=== PATIENT | female | born 1975 | race Caucasian/White ===

== ENCOUNTER 2021-08-25 14:44 | Inpatient (IN) | payer BC ==
[~2021-08-25] VITALS: Ht 175.3 cm; Wt 72.7 kg
[2021-08-25] MEDS ORDERED: normal saline 1000ml 1,000 ML IV ONE (15:25)
[2021-08-25 15:44] LABS: BASOPHILS % (AUTO) 0.3 % (0-1); EOSINOPHILS % (AUTO) 0 % (0-6); HEMATOCRIT 43.5 % (35.0-45.0); HEMOGLOBIN 14.8 g/dl (12.0-16.0); LYMPHOCYTES # (AUTO) 1.1 X10'3 (1.1-4.8); LYMPHOCYTES % (AUTO) 10.1 % (21-51); MEAN CORPUSCULAR HEMOGLOBIN 30.4 PG (27.0-31.0); MEAN CORPUSCULAR VOLUME 89.5 FL (78-98); MEAN PLATELET VOLUME 7.1 FL (7.4-10.4); MONOCYTES # (AUTO) 0.7 X10'3 (0-0.9); MONOCYTES % (AUTO) 6.6 % (2-12); NEUTROPHILS # (AUTO) 9.2 X10'3 (1.8-7.7); PLATELET COUNT 358 X10'3 (140-440); RED BLOOD COUNT 4.86 X10'6 (4.20-5.60); RED CELL DISTRIBUTION WIDTH 14.1 % (11.5-14.5); WHITE BLOOD COUNT 11.1 X10'3 (4.5-11.0)
[2021-08-25 15:59] LABS: ALANINE AMINOTRANSFERASE 17 U/L (12-78); ALBUMIN 3.1 G/DL (3.4-5.0); ALBUMIN/GLOBULIN RATIO 0.7 (1.1-1.5); ALKALINE PHOSPHATASE 62 IU/L (46-116); ANION GAP 30 (8-16); ASPARTATE AMINO TRANSFERASE 15 U/L (10-37); BILIRUBIN,DIRECT 0.1 MG/DL (0-0.3); BILIRUBIN,TOTAL 0.6 MG/DL (0.1-1.0); BLOOD UREA NITROGEN 40 MG/DL (7-18); BUN/CREATININE RATIO 30.5 (6.6-38.0); CHLORIDE 106 MMOL/L (99-107); CREATININE 1.31 MG/DL (0.40-0.90); GLUCOSE 322 MG/DL (70-104); LIPASE 379 U/L (73-393); POTASSIUM 3.9 MMOL/L (3.5-5.1); SODIUM 143 MMOL/L (135-145); TOTAL PROTEIN 7.3 G/DL (6.4-8.2); eGFR 43 ML/MIN
[2021-08-25 16:02] LABS: TOTAL CARBON DIOXIDE 7.5 MMOL/L (24-32)
[2021-08-25] MEDS ORDERED: Insulin Reg/NS 100units/100mL 100 ML IV SCH ×2 (16:15→18:15)
[2021-08-25] MEDS ORDERED: dextrose 50%-water 50ml dispensing syringe IV PRN (16:15)
[2021-08-25] MEDS: Insulin Reg/NS 100units/100mL 100 ML IV SCH (16:48)
[2021-08-25] MEDS ORDERED: levoFLOXACIN-Levaquin 750MG/D5 150 ML IV STA (16:56)
[2021-08-25] MEDS: potassium Cl 10 mEq/100mL bag IV SCH ×2 (17:45→22:27)
--- NOTE | 2021-08-25 17:58 | NUR ---
pt straight cath with 1.2 liters out clear urine
[2021-08-25 18:06] LABS: CLARITY,URINE CLEAR (Clear); COLOR,URINE YELLOW (Yellow); GLUCOSE, URINE 500 mg/dl (Neg); KETONES,URINE >=80 mg/dl (Neg); PROTEIN,URINE TRACE mg/dl (Neg); UA COLLECTION TYPE OTHER
[2021-08-25 18:07] LABS: LEUKOCYTE ESTERASE ,URINE NEGATIVE (Neg); NITRITES, URINE NEGATIVE (Neg); OCCULT BLOOD,URINE SMALL (Neg); UROBILINOGEN,URINE 0.2 E.U/dL (0.2-1.0)
[2021-08-25 18:15] LABS: BACTERIA,URINE NONE SEEN /HPF (Neg); MUCUS STRANDS FEW /LPF (Neg); RBC,URINE NONE SEEN /HPF (0-2); SQUAMOUS EPITHELIAL CELL,UR NONE SEEN /LPF (FEW); WBC,URINE NONE SEEN /HPF (0-4)
[2021-08-25] MEDS ORDERED: acetaminophen 325mg tablet PO PRN ×2 (18:15)
[2021-08-25] MEDS ORDERED: insulin regular, human U-100 3ml vial - multi-dose IV PRN (18:15)
[2021-08-25] MEDS ORDERED: magnesium hydroxide 30ml (MOM) UD suspension PO PRN (18:15)
[2021-08-25] MEDS ORDERED: Neutra Phos packet PO PRN (18:15)
[2021-08-25] MEDS ORDERED: HYDROcodone/acetaminophen 10/325mg tab PO PRN (18:15)
[2021-08-25] MEDS ORDERED: potassium Cl 20 mEq SR tablet PO PRN ×2 (18:15)
[2021-08-25] MEDS ORDERED: sodium bicarbonate (8.4%) inj. 100 MEQ in dextrose 5% water 500ml 500 ML IV PRN (18:15)
[2021-08-25] MEDS ORDERED: morphine 2 MG/ML inj. syringe IV PRN ×2 (18:15)
[2021-08-25] MEDS ORDERED: HYDROcodone/acetaminophen 5mg/325mg tablet PO PRN (18:15)
[2021-08-25] MEDS ORDERED: sodium phosphate inj. 15 MMOL in dextrose 5%-water 250 ML IV PRN (18:15)
[2021-08-25] MEDS ORDERED: sodium phosphate inj. 30 MMOL in dextrose 5%-water 250 ML IV PRN (18:15)
[2021-08-25] MEDS ORDERED: ondansetron/PF 4mg/2ml inj IV PRN (18:15)
[2021-08-25] MEDS ORDERED: potassium Cl 40MEQ/1/2NS 520ml 520 ML IV PRN (18:15)
[2021-08-25] MEDS ORDERED: mag hydrox/Alum hydrox/simeth 30ml oral suspension PO PRN (18:15)
[2021-08-25] MEDS ORDERED: sodium bicarbonate (8.4%) inj. 50 MEQ in dextrose 5% water 500ml 250 ML IV PRN (18:15)
[2021-08-25] MEDS ORDERED: potassium CL 20mEq in D5-1/2NS 1,000 ML IV PRN (18:15)
--- NOTE | 2021-08-25 18:34 | NUR ---
ASSUMED CARE OF PATIENT. PATIENT IS LYING IN BED. CONTINUES TO BE NONVERBAL. NO CHANGE IN LOC SINCE ARRIVAL PER PREVIOUS NURSE. SPOUSE IS SITTING NEXT TO PATIENT.
[2021-08-25] MEDS: normal saline 1000ml 1,000 ML IV SCH ×4 (18:45→22:15)
[2021-08-25 19:18] LABS: ALBUMIN 3.2 G/DL (3.4-5.0); ANION GAP 30 (8-16); BLOOD UREA NITROGEN 35 MG/DL (7-18); BUN/CREATININE RATIO 25.7 (6.6-38.0); CALCIUM 8.5 MG/DL (8.5-10.1); CHLORIDE 109 MMOL/L (99-107); CREATININE 1.36 MG/DL (0.40-0.90); GLUCOSE 259 MG/DL (70-104); PHOSPHORUS 2.7 MG/DL (2.3-4.5); POTASSIUM 3.7 MMOL/L (3.5-5.1); SODIUM 148 MMOL/L (135-145); eGFR 41 ML/MIN
[2021-08-25 19:35] LABS: TOTAL CARBON DIOXIDE 9.5 MMOL/L (24-32)
[2021-08-25] MEDS: docusate sod 100mg capsule PO SCH (20:00)
[2021-08-25] MEDS: K and/or MAG REPLACEMENT MC SCH (20:00)
[2021-08-25] MEDS ORDERED: EMPA25TA PO (20:32)
[2021-08-25] MEDS ORDERED: METF-438 PO (20:32)
--- NOTE | 2021-08-25 20:59 | NUR ---
staley catheter is placed
--- NOTE | 2021-08-25 22:35 | NUR ---
MEDS GIVEN LATE PT YANKED OUT HER LEFT IV ON ACCIDENT. NEW LINE PLACED ON RIGHT DISTAL FOREARM, #20G, RUNNING WELL. FLUIDS SWITCHED FROM 250 NS TO D5 1/2NS 20mEqK PER DKA PROTOCOL. NEW CMP HAS BEEN DRAWN. PT'S MENTAL STATUS REMAINS ALTERED. SHE MOVES WITH PURPOSE, MOANS, OPENS EYES AND TRACKS MY MOVEMENT; HOWEVER, SHE REMAINS NONVERBAL. CARDIAC LEADS ARE ON. GOOD URINE OUTPUT OBSERVED ON HOGUE. PT IS CLOSELY BEING MONITORED.
[2021-08-25 23:13] LABS: ALANINE AMINOTRANSFERASE 20 U/L (12-78); ALBUMIN 2.9 G/DL (3.4-5.0); ALBUMIN/GLOBULIN RATIO 0.8 (1.1-1.5); ALKALINE PHOSPHATASE 76 IU/L (46-116); ANION GAP 25 (8-16); ASPARTATE AMINO TRANSFERASE 15 U/L (10-37); BILIRUBIN,TOTAL 0.5 MG/DL (0.1-1.0); BLOOD UREA NITROGEN 32 MG/DL (7-18); BUN/CREATININE RATIO 27.8 (6.6-38.0); CALCIUM 7.8 MG/DL (8.5-10.1); CHLORIDE 115 MMOL/L (99-107); CREATININE 1.15 MG/DL (0.40-0.90); GLUCOSE 172 MG/DL (70-104); PHOSPHORUS 1.5 MG/DL (2.3-4.5); POTASSIUM 3.5 MMOL/L (3.5-5.1); SODIUM 151 MMOL/L (135-145); TOTAL PROTEIN 6.7 G/DL (6.4-8.2); eGFR 50 ML/MIN
[2021-08-25 23:20] LABS: TOTAL CARBON DIOXIDE 11.4 MMOL/L (24-32)
--- NOTE | 2021-08-25 23:37 | NUR ---
SPOKE TO DR BIANCHI CONCERNING PT'S CRITICAL CO2. GAVE ORDERS FOR A STAT ABG AND SWITCHING FLUIDS TO D10 D/T PT'S BG.
--- NOTE | 2021-08-25 23:53 | NUR ---
SPOKE WITH PHARMACY ON THE PHONE. THEY ARE GETTING MY D10 AND K BAGS READY.
--- NOTE | 2021-08-25 23:54 | NUR ---
RT HAS BEEN PAGED FOR ABG
[2021-08-26 00:14] LABS: ABG BASE EXCESS -14.1 mmol/L (-2.0-2.0); ABG HCO3 11.3 mmol/L (22.0-26.0); ABG PCO2 (T) 26.1 mmHg (32.0-45.0); ABG PO2 (T) 92.2 mmHg (75.0-100.0); ALLEN'S TEST POSITIVE; FCOHb 0.2 % (0.0-3.9); FMetHb 0.4 % (0.0-1.5); FO2Hb 96.4 % (94-97); PATIENT TEMPERATURE 36.7; TOTAL HEMOGLOBIN 14.4 G/dl (12.0-16.0)
--- NOTE | 2021-08-26 00:29 | NUR ---
RECIEVED MY D10 BAG FROM PHARMACY. FLUIDS INFUSING NOW. WILL CONTINUE TO MONITOR CAREFULLY. POTASSIUM BAG WAS REJECTED LAST LAB RESULT WAS 3.5. WILL CONTINUE TO MONITOR POTASSIUM LEVELS. PT CONTINUES TO BE ALTERED. ABG HAS ALREADY BEEN TAKEN BY RT.
[2021-08-26] MEDS: DEXTROSE 10 % AND 0.45 % NACL 1,000 ML IV SCH ×3 (00:30→19:24)
[2021-08-26 01:28] LABS: ALBUMIN 2.8 G/DL (3.4-5.0); ANION GAP 23 (8-16); BLOOD UREA NITROGEN 30 MG/DL (7-18); BUN/CREATININE RATIO 25.9 (6.6-38.0); CALCIUM 7.9 MG/DL (8.5-10.1); CHLORIDE 118 MMOL/L (99-107); CREATININE 1.16 MG/DL (0.40-0.90); GLUCOSE 148 MG/DL (70-104); POTASSIUM 3.6 MMOL/L (3.5-5.1); eGFR 50 ML/MIN
[2021-08-26 01:47] LABS: SODIUM 155 MMOL/L (135-145)
[2021-08-26 01:48] LABS: PHOSPHORUS 1.2 MG/DL (2.3-4.5); TOTAL CARBON DIOXIDE 13.8 MMOL/L (24-32)
--- NOTE | 2021-08-26 01:55 | NUR ---
SPOKE TO DR BIANCHI CONCERNING PT'S NEW CRITICAL VALUES OVER THE PHONE. GIVEN A TELEPHONE ORDER TO INCREASE INSULILN FROM 3 UNITS/HR TO 6 UNITS/HR AND TO GIVE D10 1/2 NS running at 100 ml/hr. THERE IS NO CHANGE IN LOC IN PT AT THIS POINT.
--- NOTE | 2021-08-26 02:06 | NUR ---
SPOKE TO DR BIANCHI WHETHER WE WANT TO GIVE PT MORE FLUIDS D/T DKA. HE BELIEVES PT DOES NOT REQUIRE MORE FLUIDS AT THIS POINT.
[2021-08-26] MEDS: normal saline 1000ml 1,000 ML IV SCH ×5 (02:15→18:15)
--- NOTE | 2021-08-26 04:34 | NUR ---
SPOKE TO DR BIANCHI CONCERNING PT' NEW BG. ORDERS TO INCREASE RATE OF D10 1/2 NS FROM 110 ML/HR TO 130 ML/HR AND TO DECREASE INSULIN FROM 6 UNITS/HR TO 5 UNITS/HR. CBC AND CMP HAVE ALSO BEEN DRAWN.
--- NOTE | 2021-08-26 04:35 | NUR ---
NO CHANGE IN LOC AT THIS TIME
[2021-08-26 04:48] LABS: BASOPHILS % (AUTO) 0.3 % (0-1); EOSINOPHILS % (AUTO) 0 % (0-6); HEMATOCRIT 40.9 % (35.0-45.0); HEMOGLOBIN 14.2 g/dl (12.0-16.0); LYMPHOCYTES # (AUTO) 1.2 X10'3 (1.1-4.8); LYMPHOCYTES % (AUTO) 11.6 % (21-51); MEAN CORPUSCULAR HEMOGLOBIN 30.2 PG (27.0-31.0); MEAN CORPUSCULAR HGB CONC 34.6 g/dL (33.0-36.5); MEAN CORPUSCULAR VOLUME 87.2 FL (78-98); MEAN PLATELET VOLUME 7.1 FL (7.4-10.4); MONOCYTES # (AUTO) 0.8 X10'3 (0-0.9); MONOCYTES % (AUTO) 7.8 % (2-12); NEUTROPHILS # (AUTO) 8.4 X10'3 (1.8-7.7); NEUTROPHILS % (AUTO) 80.3 % (42-75); PLATELET COUNT 300 X10'3 (140-440); RED BLOOD COUNT 4.69 X10'6 (4.20-5.60); RED CELL DISTRIBUTION WIDTH 13.3 % (11.5-14.5); WHITE BLOOD COUNT 10.5 X10'3 (4.5-11.0)
--- NOTE | 2021-08-26 05:35 | NUR ---
SPOKE TO DR BIANCHI CONCERNING PT'S BG OF 79. INSTRUCTED TO GIVE D50 AND DECREASE INSULIN DRIP FROM 5 UNITS TO 4 UNITS/HR.
[2021-08-26 05:40] LABS: ALANINE AMINOTRANSFERASE 19 U/L (12-78); ALBUMIN 2.8 G/DL (3.4-5.0); ALBUMIN/GLOBULIN RATIO 0.8 (1.1-1.5); ALKALINE PHOSPHATASE 56 IU/L (46-116); ANION GAP 15 (8-16); ASPARTATE AMINO TRANSFERASE 17 U/L (10-37); BILIRUBIN,TOTAL 0.4 MG/DL (0.1-1.0); BLOOD UREA NITROGEN 27 MG/DL (7-18); CALCIUM 8.1 MG/DL (8.5-10.1); CHLORIDE 121 MMOL/L (99-107); CREATININE 1.23 MG/DL (0.40-0.90); GLUCOSE 118 MG/DL (70-104); SODIUM 154 MMOL/L (135-145); TOTAL CARBON DIOXIDE 18.1 MMOL/L (24-32); TOTAL PROTEIN 6.3 G/DL (6.4-8.2); eGFR 47 ML/MIN
[2021-08-26] MEDS: dextrose 50%-water 50ml dispensing syringe IV PRN ×2 (05:42→19:25)
[2021-08-26 05:55] LABS: POTASSIUM 2.9 MMOL/L (3.5-5.1)
--- NOTE | 2021-08-26 06:01 | NUR ---
NOTIFIED DR BIANCHI CONCERNING PT'S CRITICAL LAB FOR POTASSIUM. WILL GIVE 40 K IV PER PROTOCOL. CALLED PHARMACY; THEY ARE GETTING MY BAGS READY.
[2021-08-26] MEDS: potassium Cl 40MEQ/1/2NS 520ml 520 ML IV PRN ×2 (07:20→14:10)
[2021-08-26] MEDS: K and/or MAG REPLACEMENT MC SCH ×2 (07:31→20:00)
[2021-08-26] MEDS: docusate sod 100mg capsule PO SCH ×2 (07:31→20:00)
[2021-08-26 11:25] LABS: URINE AMPHETAMINE SCREEN NEGATIVE (Neg); URINE BARBITUATE SCREEN NEGATIVE (Neg); URINE BENZODIAZEPINES SCREEN NEGATIVE (Neg); URINE CANNABINOID SCREEN NEGATIVE (Neg); URINE COCAINE SCREEN NEGATIVE (Neg); URINE METHADONE SCREEN NEGATIVE (Neg); URINE OPIATE SCREEN NEGATIVE (Neg); URINE PHENCYCLIDINE SCREEN NEGATIVE (Neg)
--- NOTE | 2021-08-26 13:25 | NUR ---
dr galvez at bedside.verbal order for ct abd and pelvis,procalcitonin ,hbA1C,lactic acid order.
[2021-08-26 13:47] LABS: HEMOGLOBIN A1C 9.2 % (4.5-6.2)
--- NOTE | 2021-08-26 14:13 | NUR ---
went to ct scan with the pt just came back.
--- NOTE | 2021-08-26 19:42 | NUR ---
pt is now able to complete a few full sentences. she has asked for a glass of water and a blanket. she has also been able to tell me her first name.
[2021-08-26 23:03] LABS: ANION GAP 10 (8-16); CHLORIDE 120 MMOL/L (99-107); GLUCOSE 189 MG/DL (70-104); SODIUM 154 MMOL/L (135-145); TOTAL CARBON DIOXIDE 24.5 MMOL/L (24-32)
[2021-08-26 23:04] LABS: ALANINE AMINOTRANSFERASE 27 U/L (12-78); ALBUMIN 2.4 G/DL (3.4-5.0); ALBUMIN/GLOBULIN RATIO 0.8 (1.1-1.5); ALKALINE PHOSPHATASE 46 IU/L (46-116); ASPARTATE AMINO TRANSFERASE 31 U/L (10-37); BILIRUBIN,TOTAL 0.6 MG/DL (0.1-1.0); BLOOD UREA NITROGEN 13 MG/DL (7-18); BUN/CREATININE RATIO 17.8 (6.6-38.0); CALCIUM 7.2 MG/DL (8.5-10.1); CREATININE 0.73 MG/DL (0.40-0.90); TOTAL PROTEIN 5.5 G/DL (6.4-8.2); eGFR 85 ML/MIN
[2021-08-26 23:10] LABS: POTASSIUM 2.4 MMOL/L (3.5-5.1)
[2021-08-27] MEDS: potassium Cl 40MEQ/1/2NS 520ml 520 ML IV PRN (01:17)
[2021-08-27 01:35] LABS: ABG BASE EXCESS 4.1 mmol/L (-2.0-2.0); ABG HCO3 26.1 mmol/L (22.0-26.0); ABG OXYGEN SATURATION 95.9 % (94-97); ABG PCO2 (T) 31.3 mmHg (32.0-45.0); ABG PO2 (T) 69.2 mmHg (75.0-100.0); ALLEN'S TEST POSITIVE; FMetHb 0.3 % (0.0-1.5); FO2Hb 94.7 % (94-97); RESPIRATORY RATE 18 b/min; TOTAL HEMOGLOBIN 13.6 G/dl (12.0-16.0)
[2021-08-27] MEDS: Insulin Reg/NS 100units/100mL 100 ML IV SCH (01:35)
[2021-08-27] MEDS: normal saline 1000ml 1,000 ML IV SCH ×7 (02:15→23:10)
[2021-08-27 02:18] LABS: BASOPHILS # (AUTO) 0.1 X10'3 (0-0.2); BASOPHILS % (AUTO) 0.6 % (0-1); EOSINOPHILS % (AUTO) 0.1 % (0-6); HEMATOCRIT 38.5 % (35.0-45.0); HEMOGLOBIN 13.5 g/dl (12.0-16.0); LYMPHOCYTES # (AUTO) 1.5 X10'3 (1.1-4.8); LYMPHOCYTES % (AUTO) 16.7 % (21-51); MEAN CORPUSCULAR HEMOGLOBIN 30.2 PG (27.0-31.0); MEAN CORPUSCULAR HGB CONC 35.1 g/dL (33.0-36.5); MEAN PLATELET VOLUME 7.1 FL (7.4-10.4); MONOCYTES # (AUTO) 0.9 X10'3 (0-0.9); MONOCYTES % (AUTO) 9.7 % (2-12); NEUTROPHILS # (AUTO) 6.6 X10'3 (1.8-7.7); NEUTROPHILS % (AUTO) 72.9 % (42-75); PLATELET COUNT 223 X10'3 (140-440); RED BLOOD COUNT 4.47 X10'6 (4.20-5.60); RED CELL DISTRIBUTION WIDTH 13.4 % (11.5-14.5)
--- NOTE | 2021-08-27 02:19 | NUR ---
Primary RN on break from . BG 122. Insulin running at 4 unit/hr, D10 0.45 NS at 155 ml/hr and Potassium being replaced. Lab called and all labs were clotted. Insulin gtt paused until updated potassium could be obtained. Dr. Smyth passed by room with no new orders. [facility] housing quality standard inspector aware. Istat run, K 2.9. Last labs at 2030 note a Anion gap 10 and CO2 24.5. Patient states she is hungry and has been tolerating ice water. Per protocol patient meets criteria to be dc'd from DKA protocol. Primary RN returned and updated on pt condition.
--- NOTE | 2021-08-27 02:40 | NUR ---
spoke to dr. epperson and he said to stop insulin and d10 since pt is eating applesauce with no issue at this time. start hyperglycemia protocol.
[2021-08-27] MEDS ORDERED: glucagon, human recombinant 1mg kit SUBCUT PRN ×2 (02:45→17:45)
[2021-08-27] MEDS ORDERED: dextrose ORAL solution 15 GM/59 ML bottle PO PRN ×3 (02:45→17:45)
[2021-08-27] MEDS ORDERED: dextrose 50%-water 50ml dispensing syringe IV PRN ×3 (02:45→17:45)
[2021-08-27] MEDS ORDERED: MESSAGE TO PHARMACY PO ONE ×2 (02:45→17:45)
[2021-08-27 03:55] LABS: ALANINE AMINOTRANSFERASE 28 U/L (12-78); ALBUMIN 2.4 G/DL (3.4-5.0); ALBUMIN/GLOBULIN RATIO 0.7 (1.1-1.5); ALKALINE PHOSPHATASE 46 IU/L (46-116); ANION GAP 9 (8-16); ASPARTATE AMINO TRANSFERASE 30 U/L (10-37); BILIRUBIN,TOTAL 0.5 MG/DL (0.1-1.0); BLOOD UREA NITROGEN 9 MG/DL (7-18); BUN/CREATININE RATIO 13.4 (6.6-38.0); CALCIUM 7.5 MG/DL (8.5-10.1); CHLORIDE 115 MMOL/L (99-107); CREATININE 0.67 MG/DL (0.40-0.90); GLUCOSE 122 MG/DL (70-104); MAGNESIUM 1.7 MG/DL (1.5-2.4); SODIUM 151 MMOL/L (135-145); TOTAL CARBON DIOXIDE 27.4 MMOL/L (24-32); TOTAL PROTEIN 5.8 G/DL (6.4-8.2); eGFR > 90 ML/MIN
[2021-08-27 04:05] LABS: PHOSPHORUS 0.5 MG/DL (2.3-4.5)
[2021-08-27] MEDS: DEXTROSE 10 % AND 0.45 % NACL 1,000 ML IV SCH ×2 (05:40→15:40)
[2021-08-27] MEDS: docusate sod 100mg capsule PO SCH ×2 (08:00→21:29)
[2021-08-27] MEDS: K and/or MAG REPLACEMENT MC SCH ×2 (08:54→20:00)
--- NOTE | 2021-08-27 13:49 | NUR ---
PAGE TO DR. CUELLAR RE: SLIDING SCALE INSULIN ORDER. PRESENT BG IS 239. PAGER ID: [phone] MESSAGE: ER BED 9 WATKINS. CURRENT BG IS 239. WE NEED ORDER FOR SLIDING SCALE INSULIN. THANKS, LILY [id number]
--- NOTE | 2021-08-27 15:00 | NUR ---
SEVERAL CALLS AND PAGES TO HOSPITALIST TO PUT IN NEW ORDERS DUE TO PT BS 239. NO RESPONSE
[2021-08-27 15:49] LABS: BASOPHILS % (AUTO) 0.4 % (0-1); EOSINOPHILS % (AUTO) 0.1 % (0-6); HEMATOCRIT 39.7 % (35.0-45.0); HEMOGLOBIN 13.6 g/dl (12.0-16.0); LYMPHOCYTES # (AUTO) 1.3 X10'3 (1.1-4.8); LYMPHOCYTES % (AUTO) 14.5 % (21-51); MEAN CORPUSCULAR HGB CONC 34.2 g/dL (33.0-36.5); MEAN CORPUSCULAR VOLUME 87.8 FL (78-98); MEAN PLATELET VOLUME 7.3 FL (7.4-10.4); MONOCYTES # (AUTO) 0.7 X10'3 (0-0.9); MONOCYTES % (AUTO) 8.4 % (2-12); NEUTROPHILS # (AUTO) 6.8 X10'3 (1.8-7.7); NEUTROPHILS % (AUTO) 76.6 % (42-75); PLATELET COUNT 188 X10'3 (140-440); RED BLOOD COUNT 4.52 X10'6 (4.20-5.60); RED CELL DISTRIBUTION WIDTH 13.7 % (11.5-14.5); WHITE BLOOD COUNT 8.8 X10'3 (4.5-11.0)
[2021-08-27 15:59] LABS: ALBUMIN 2.5 G/DL (3.4-5.0); ANION GAP 11 (8-16); BLOOD UREA NITROGEN 13 MG/DL (7-18); BUN/CREATININE RATIO 22.8 (6.6-38.0); CHLORIDE 110 MMOL/L (99-107); CREATININE 0.57 MG/DL (0.40-0.90); GLUCOSE 387 MG/DL (70-104); POTASSIUM 3.8 MMOL/L (3.5-5.1); SODIUM 145 MMOL/L (135-145); TOTAL CARBON DIOXIDE 23.8 MMOL/L (24-32); eGFR > 90 ML/MIN
--- NOTE | 2021-08-27 16:46 | NUR ---
SPOKE TO DR CUELLAR REGARDING SLIDING SCALE THAT HE WANTED EARLIER BUT WAS NOT ORDERED. NEW ORDER: HYPERGLYCEMIA SLIDING SCALE PROTOCOL.
[2021-08-27] MEDS: insulin Lispro (HumaLOG) vial - multi-dose SQ SCH (19:42)
[2021-08-27 20:09] LABS: TOTAL CELLS COUNTED 100
[2021-08-27 20:10] LABS: PLATELET ESTIMATE NORMAL
[2021-08-27] MEDS ORDERED: insulin glargine (Lantus) pen - multi-dose SQ SCH ×2 (21:00)
[2021-08-28] MEDS: DEXTROSE 10 % AND 0.45 % NACL 1,000 ML IV SCH (01:40)
[2021-08-28 02:00] VITALS: BP 112/70
[2021-08-28] MEDS: normal saline 1000ml 1,000 ML IV SCH (02:15)
--- NOTE | 2021-08-28 06:19 | NUR ---
Problems reprioritized. Patient report given, questions answered & plan of care reviewed with Nivia-RN.
--- NOTE | 2021-08-28 06:40 | NUR ---
Patient in room PCU 3008. I have received report from JOYA Hernandez and had the opportunity to ask questions and assume patient care.
[2021-08-28 06:51] LABS: BASOPHILS # (AUTO) 0.1 X10'3 (0-0.2); BASOPHILS % (AUTO) 0.6 % (0-1); EOSINOPHILS % (AUTO) 0.4 % (0-6); HEMATOCRIT 37.9 % (35.0-45.0); LYMPHOCYTES # (AUTO) 1.7 X10'3 (1.1-4.8); LYMPHOCYTES % (AUTO) 18.7 % (21-51); MEAN CORPUSCULAR HEMOGLOBIN 30.1 PG (27.0-31.0); MEAN CORPUSCULAR HGB CONC 34.4 g/dL (33.0-36.5); MEAN CORPUSCULAR VOLUME 87.6 FL (78-98); MEAN PLATELET VOLUME 7.4 FL (7.4-10.4); MONOCYTES # (AUTO) 0.9 X10'3 (0-0.9); MONOCYTES % (AUTO) 9.5 % (2-12); NEUTROPHILS # (AUTO) 6.6 X10'3 (1.8-7.7); NEUTROPHILS % (AUTO) 70.8 % (42-75); PLATELET COUNT 155 X10'3 (140-440); RED BLOOD COUNT 4.33 X10'6 (4.20-5.60); RED CELL DISTRIBUTION WIDTH 13.8 % (11.5-14.5); WHITE BLOOD COUNT 9.3 X10'3 (4.5-11.0)
[2021-08-28 07:00] VITALS: BP 100/72
[2021-08-28 07:16] LABS: ALBUMIN 2.4 G/DL (3.4-5.0); ANION GAP 13 (8-16); BLOOD UREA NITROGEN 11 MG/DL (7-18); BUN/CREATININE RATIO 32.4 (6.6-38.0); CALCIUM 8.5 MG/DL (8.5-10.1); CHLORIDE 109 MMOL/L (99-107); CREATININE 0.34 MG/DL (0.40-0.90); GLUCOSE 191 MG/DL (70-104); POTASSIUM 3.2 MMOL/L (3.5-5.1); SODIUM 149 MMOL/L (135-145); TOTAL CARBON DIOXIDE 27.4 MMOL/L (24-32); eGFR > 90 ML/MIN
[2021-08-28] MEDS: K and/or MAG REPLACEMENT MC SCH (08:00)
[2021-08-28] MEDS: docusate sod 100mg capsule PO SCH (08:00)
[2021-08-28] MEDS: insulin Lispro (HumaLOG) vial - multi-dose SQ SCH ×2 (09:46→14:25)
[2021-08-28] MEDS ORDERED: LANTUS SQ (10:13)
[2021-08-28 11:00] VITALS: BP 124/68
--- NOTE | 2021-08-28 13:21 | NUR ---
Initial: Pt admitted w/ ALOC, mild DKA, and Covid per EMR. Pt currently on CCHO diet w/ 0% intake of first meal and 85% of second meal. Pt more alert today, provided pt w/ verbal DM education via TC and provided written education w/ RD contact info to RN to give to Pt as pt currently in isolation. LBM 08/28. No nutrition intervention implemented at this time, will continue to monitor. Recs: 1. Continue CCHO diet as tolerated 2. Bowel care per rx 3. Weekly wts Addendum: 08/28/21 at [address] Amended: Links added.
--- NOTE | 2021-08-28 15:45 | NUR ---
Patient stable for discharge per md orders. All instructions were given, all questions answered appropriately. All belongings were collected and sent with pt. PIV discontinued, cannula intact. Tele discontinued, telescope repairer notified. Called Nikita into [facility] in [place]. Wheeled pt to lobby and assisted into vehicle with .
[2021-08-29 14:01] LABS: ISTAT NA 149 mmol/L (135-145)
[2021-08-29 14:02] LABS: ISTAT ANION GAP 15 (8-12); ISTAT BUN 8 mg/dL (7-18); ISTAT CL 109 mmol/L (99-107); ISTAT CREATININE 0.3 mg/dL (0.6-1.1); ISTAT TOTAL CO2 25 mmol/L (24-32); ISTAT eGFR > 90 ML/MIN
[2021-08-29 14:03] LABS: ISTAT GLUCOSE 125 mg/dL (70-105); ISTAT HGB 12.6 g/dl (12.0-16.0); ISTAT Hct 37 %PCV (35-48); ISTAT IONIZED CALCIUM 1.09 mmol/L (1.03-1.32); POC BUN/CREATININE RATIO 26.7 (6.6-38.0)
[2021-08-29 14:05] LABS: ISTAT K 2.9 mmol/L (3.5-5.1)
== END 2021-08-28 15:45 | disposition home or self-care (01) | DRG 637 ==
LOC: ER 14:45 → ED HOLD 18:16 → EDBEDREQ 08-26 21:45 → PCU 3S 08-28 00:20
PROVIDERS: ADMIT Internal Medicine; ATTEND Internal Medicine
DX: E11.10 Type 2 diabetes mellitus with ketoacidosis without coma (principal); G93.41 Metabolic encephalopathy; J18.8 Other pneumonia, unspecified organism; U07.1 COVID-19; N17.9 Acute kidney failure, unspecified; E87.0 Hyperosmolality and hypernatremia; G31.9 Degenerative disease of nervous system, unspecified; E87.6 Hypokalemia; E86.0 Dehydration; Z88.0 Allergy status to penicillin; Z90.49 Acquired absence of other specified parts of digestive tract
CPT/HCPCS: 36415; 36600; 70450; 70551; 71045; 74176; 80047; 80048; 80053; 80076; 80305; 81001; 82140; 82803; 82948; 83036; 83605; 83690; 83735; 84100; 84145; 84443; 85007; 85018; 85025; 87081; 87635; 93005; 96365; 99291; C9803; G0378; J1815; J1956; J3480; J7030